=== PATIENT | male | born 1940 | race Caucasian/White ===

== ENCOUNTER 2024-04-06 18:40 | Emergency (ER) | payer OTHER ==
[~2024-04-06] VITALS: Ht 177.8 cm; Wt 91.2 kg
[2024-04-06] MEDS ORDERED: TRANEXAMIC ACID 1,000 MG/10 ML VIAL ONE ×2 (18:50→19:57)
[2024-04-06] MEDS: TRANEXAMIC ACID 1,000 MG/10 ML VIAL IR ONE (19:00)
[2024-04-06] MEDS: DILTIAZEM HCL 50 MG IV IV ONE (19:30)
[2024-04-06] MEDS: IV NS 0.9% 500 ML BAG IV ONE (19:30)
[2024-04-06 19:39] LABS: BASOPHILS # (AUTO) 0.1 K/uL (0.0-0.2); BASOPHILS % (AUTO) 1.1 % (0.0-2.0); EOSINOPHILS # (AUTO) 0.1 K/uL (0.0-0.7); EOSINOPHILS % (AUTO) 2.3 % (0.0-6.0); HEMATOCRIT 35 % (39-51); HEMOGLOBIN 11.3 g/dL (13.5-17.5); LYMPHOCYTES # (AUTO) 0.6 K/uL (0.8-4.8); LYMPHOCYTES % (AUTO) 10.1 % (20.0-44.0); MEAN CORPUSCULAR HEMOGLOBIN 31 PG (26.0-33.0); MEAN CORPUSCULAR HGB CONC 32 g/dl (31.0-36.0); MEAN CORPUSCULAR VOLUME 97 fL (80-96); MONOCYTES # (AUTO) 0.8 K/uL (0.1-1.30); MONOCYTES % (AUTO) 14.4 % (2.0-12.0); NEUTROPHILS # (AUTO) 4.3 K/uL (1.8-8.9); NEUTROPHILS % (AUTO) 72.1 % (43.0-81.0); PLATELET COUNT (AUTO) 132 K/uL (150-450); RED BLOOD CELL COUNT(AUTO) 3.61 MIL/uL (4.5-6.0); RED CELL DISTRIBUTION WIDTH 15.8 % (11.5-15.0); WHITE BLOOD COUNT (AUTO) 5.9 K/uL (4.3-11.0)
[2024-04-06 19:47] LABS: CALCIUM, SERUM 9.1 mg/dL (8.5-10.1); CARBON DIOXIDE 24 mmol/L (21-32); CHLORIDE 107 mmol/L (98-107); CREATININE 1.7 mg/dL (0.6-1.3); GLUCOSE 119 mg/dL (74-106); POTASSIUM 4.9 mmol/L (3.5-5.1); SODIUM SERUM 139 mmol/L (136-145); UREA NITROGEN, BLOOD 62 mg/dL (7-18)
[2024-04-06] MEDS ORDERED: DILTIAZEM HCL 25 MG IV ONE (19:49)
[2024-04-06 19:54] LABS: INR 1.39 (0.91-1.10); PARTIAL THROMBOPLASTIN TIME 42.3 SEC (24.3-34.3); PROTHROMBIN TIME 14.1 SECS (9.2-11.1)
[2024-04-06 21:18] VITALS: BP 108/80; TEMP 98.7; O2SAT 94
== END 2024-04-06 21:19 | disposition home or self-care (01) ==
LOC: ER 18:46
DX: I48.20 Chronic atrial fibrillation, unspecified (principal); R04.0 Epistaxis; I50.9 Heart failure, unspecified; E11.9 Type 2 diabetes mellitus without complications; G30.9 Alzheimer's disease, unspecified; F02.80 Dementia in other diseases classified elsewhere, unspecified severity, without behavioral disturbance, psychotic disturbance, mood disturbance, and anxiety
CPT/HCPCS: 99285; 96374; 71045; 30901; 85025; 80048; 36415; 84484; 85730; 83880; 93005; J3490; J7040

== ENCOUNTER 2024-04-23 23:34 | Emergency (ER) | payer OTHER ==
[~2024-04-23] VITALS: Ht 177.8 cm; Wt 91.2 kg
[2024-04-23 23:40] VITALS: TEMP 98.6
[2024-04-24] MEDS: IV NS 0.9% 500 ML IV ONE (02:37)
[2024-04-24 03:21] VITALS: BP 109/76; O2SAT 98
[2024-04-30] MEDS ORDERED: CEPH-570 PO (15:11)
== END 2024-04-24 03:21 ==
LOC: ER 23:35
DX: Z46.6 Encounter for fitting and adjustment of urinary device (principal); G30.9 Alzheimer's disease, unspecified; F02.80 Dementia in other diseases classified elsewhere, unspecified severity, without behavioral disturbance, psychotic disturbance, mood disturbance, and anxiety; I48.91 Unspecified atrial fibrillation; E11.9 Type 2 diabetes mellitus without complications
CPT/HCPCS: 99284; 51702; 96360; J7040

== ENCOUNTER 2024-04-28 14:42 | Inpatient (IN) | payer OTHER ==
[~2024-04-28] VITALS: Ht 180.3 cm; Wt 95.3 kg
[2024-04-28 15:41] LABS: BASOPHILS # (AUTO) 0.1 K/uL (0.0-0.2); BASOPHILS % (AUTO) 1.3 % (0.0-2.0); EOSINOPHILS # (AUTO) 0.1 K/uL (0.0-0.7); EOSINOPHILS % (AUTO) 1.7 % (0.0-6.0); HEMATOCRIT 24 % (39-51); HEMOGLOBIN 7.9 g/dL (13.5-17.5); LYMPHOCYTES # (AUTO) 0.5 K/uL (0.8-4.8); LYMPHOCYTES % (AUTO) 8.3 % (20.0-44.0); MEAN CORPUSCULAR HEMOGLOBIN 31 PG (26.0-33.0); MEAN CORPUSCULAR HGB CONC 33 g/dl (31.0-36.0); MEAN CORPUSCULAR VOLUME 96 fL (80-96); MONOCYTES # (AUTO) 0.8 K/uL (0.1-1.30); MONOCYTES % (AUTO) 12.9 % (2.0-12.0); NEUTROPHILS # (AUTO) 4.4 K/uL (1.8-8.9); NEUTROPHILS % (AUTO) 75.8 % (43.0-81.0); PLATELET COUNT (AUTO) 156 K/uL (150-450); RED BLOOD CELL COUNT(AUTO) 2.53 MIL/uL (4.5-6.0); RED CELL DISTRIBUTION WIDTH 16.4 % (11.5-15.0); WHITE BLOOD COUNT (AUTO) 5.8 K/uL (4.3-11.0)
[2024-04-28 15:45] LABS: CALCIUM, SERUM 8.7 mg/dL (8.5-10.1); CARBON DIOXIDE 25 mmol/L (21-32); CHLORIDE 102 mmol/L (98-107); CREATININE 1.9 mg/dL (0.6-1.3); GLUCOSE 169 mg/dL (74-106); POTASSIUM 4.2 mmol/L (3.5-5.1); SODIUM SERUM 134 mmol/L (136-145); UREA NITROGEN, BLOOD 46 mg/dL (7-18)
[2024-04-28 15:50] LABS: ALANINE AMINOTRANSFERASE 17 U/L (12-78); ALBUMIN 2.9 g/dL (3.4-5.0); ALKALINE PHOSPHATASE 117 U/L (46-116); ASPARTATE AMINOTRANSFERASE 20 U/L (15-37); BILIRUBIN,DIRECT 0.5 mg/dL (0.0-0.2); BILIRUBIN,TOTAL 0.9 mg/dL (0.2-1.0); TOTAL PROTEIN, SERUM 7.5 g/dL (6.4-8.2)
[2024-04-28 15:58] LABS: LACTIC ACID 2.4 mmol/L (0.4-2.0)
[2024-04-28 16:00] LABS: INR 1.22 (0.91-1.10); PARTIAL THROMBOPLASTIN TIME 28.3 SEC (24.3-34.3); PROTHROMBIN TIME 12.5 SECS (9.2-11.1)
[2024-04-28] MEDS ORDERED: MULT1TAB70 PO (16:29)
[2024-04-28] MEDS ORDERED: POVI3780 TP (16:29)
[2024-04-28] MEDS ORDERED: MORP15TA PO (16:29)
[2024-04-28] MEDS ORDERED: AMIO100T4 PO (16:29)
[2024-04-28] MEDS ORDERED: PETR113O TP (16:29)
[2024-04-28] MEDS ORDERED: MENT71OI2 TP (16:29)
[2024-04-28] MEDS ORDERED: FURO-145 PO ×2 (16:29)
[2024-04-28] MEDS ORDERED: ACET650S11 RC (16:29)
[2024-04-28] MEDS ORDERED: AMOX500T2 PO (16:29)
[2024-04-28] MEDS ORDERED: MIRT-90 PO (16:29)
[2024-04-28] MEDS ORDERED: TIOT4MIS2 IH (16:29)
[2024-04-28] MEDS ORDERED: ASCO100058 PO (16:29)
[2024-04-28] MEDS ORDERED: CLOT15CR27 TP (16:29)
[2024-04-28] MEDS ORDERED: SPIR25TA6 PO (16:29)
[2024-04-28] MEDS ORDERED: ONDA4TAB11 SL (16:29)
[2024-04-28] MEDS ORDERED: LORA-258 PO (16:29)
[2024-04-28] MEDS ORDERED: DICL100G26 TP (16:29)
[2024-04-28] MEDS ORDERED: METH1TAB69 PO (16:29)
[2024-04-28] MEDS ORDERED: OMEG100037 PO (16:29)
[2024-04-28] MEDS ORDERED: BENZ-38 PO (16:29)
[2024-04-28] MEDS ORDERED: ATOR20TA PO (16:29)
[2024-04-28] MEDS ORDERED: BISO5TAB20 PO (16:29)
[2024-04-28] MEDS ORDERED: MAGN400O6 PO (16:29)
[2024-04-28] MEDS ORDERED: FERR325T28 PO (16:29)
[2024-04-28] MEDS ORDERED: PANT40TA2 PO (16:29)
[2024-04-28] MEDS ORDERED: ATRO2DRO4 SL (16:29)
[2024-04-28] MEDS ORDERED: SENN1TAB77 PO (16:29)
[2024-04-28] MEDS ORDERED: PROC25SU29 RC (16:29)
[2024-04-28] MEDS ORDERED: MORP100S3 PO (16:29)
[2024-04-28] MEDS ORDERED: TAMS-12 PO (16:29)
[2024-04-28] MEDS ORDERED: HALO1TAB5 SL (16:29)
[2024-04-28] MEDS ORDERED: LACT1CAP25 PO (16:29)
[2024-04-28] MEDS ORDERED: ACET-2030 PO (16:29)
[2024-04-28] MEDS ORDERED: BISA10SU11 RC (16:29)
[2024-04-28 16:43] LABS: APPEARANCE,URINE Slightly Cloudy (CLEAR); BILIRUBIN,URINE Negative (NEGATIVE); BLOOD, URINE Large Ery/uL (NEGATIVE); COLOR,URINE YELLOW (YELLOW); KETONES,URINE Negative (NEGATIVE); LEUKOCYTE ESTERASE ,URINE Trace (NEGATIVE); NITRITE, URINE Positive (NEGATIVE); PH,URINE 5.5 (5.0-8.0); PROTEIN,URINE 100 mg/dl (NEGATIVE); UGLUCOSE Negative (NEGATIVE); UROBILINOGEN,URINE 0.2 EU/dL (0.2)
[2024-04-28 16:59] LABS: RBC,URINE 21-50 /HPF (0-2)
[2024-04-28 17:00] LABS: ADD URINE CULTURE YES; BACTERIA,URINE Few /HPF (None Seen); SQUAMOUS EPITHELIAL CELL,UR Few /HPF (None Seen)
[2024-04-28] MEDS: CEFTRIAXONE 1GM BAG (ER ONLY) 1 GM/50 ML PIGGYBACK IV ONE (17:30)
[2024-04-28] MEDS ORDERED: CEFTRIAXONE 1GM BAG (ER ONLY) 50 ML IV ONE (17:35)
[2024-04-28] MEDS: TRANEXAMIC ACID 1,000 MG in IV NS 0.9% 100 ML IV ONE (18:00)
[2024-04-28] MEDS ORDERED: Z GUARD REMEDY 4 OZ OINT TP PRN (18:00)
[2024-04-28] MEDS ORDERED: ONDANSETRON HCL/PF 4 MG/2 ML VIAL IVP PRN (18:00)
[2024-04-28] MEDS ORDERED: CEFTRIAXONE 1 G in IV D5W 50 ML IV SCH (18:00)
[2024-04-28] MEDS ORDERED: MORPHINE SULFATE IR 15 MG TABLET PO PRN (18:00)
[2024-04-28 20:20] VITALS: BP 90/69; TEMP 98.8; O2SAT 96
[2024-04-28] MEDS ORDERED: HALOPERIDOL 1 MG TABLET PO PRN (21:00)
[2024-04-28] MEDS: ATORVASTATIN 10 MG TABLET PO SCH (21:29)
[2024-04-28] MEDS: MIRTAZAPINE 15 MG TABLET PO SCH (21:29)
[2024-04-28] MEDS: IV NS 0.9% 1,000 ML IV PRN (22:13)
[2024-04-28 22:49] LABS: HEMOGLOBIN 7.5 g/dL (13.5-17.5)
[2024-04-29] VITALS (7 sets, daily range): BP systolic 90–105; BP diastolic 63–77; TEMP 98.1–100; O2SAT 94–100
[2024-04-29 07:06] LABS: BASOPHILS # (AUTO) 0.1 K/uL (0.0-0.2); BASOPHILS % (AUTO) 1.1 % (0.0-2.0); EOSINOPHILS # (AUTO) 0.1 K/uL (0.0-0.7); EOSINOPHILS % (AUTO) 2.6 % (0.0-6.0); HEMATOCRIT 22 % (39-51); HEMOGLOBIN 7.3 g/dL (13.5-17.5); LYMPHOCYTES # (AUTO) 0.5 K/uL (0.8-4.8); LYMPHOCYTES % (AUTO) 10.4 % (20.0-44.0); MEAN CORPUSCULAR HEMOGLOBIN 31 PG (26.0-33.0); MEAN CORPUSCULAR HGB CONC 33 g/dl (31.0-36.0); MEAN CORPUSCULAR VOLUME 95 fL (80-96); MONOCYTES # (AUTO) 0.9 K/uL (0.1-1.30); MONOCYTES % (AUTO) 16.7 % (2.0-12.0); NEUTROPHILS # (AUTO) 3.6 K/uL (1.8-8.9); NEUTROPHILS % (AUTO) 69.2 % (43.0-81.0); PLATELET COUNT (AUTO) 135 K/uL (150-450); RED BLOOD CELL COUNT(AUTO) 2.34 MIL/uL (4.5-6.0); RED CELL DISTRIBUTION WIDTH 16.9 % (11.5-15.0); WHITE BLOOD COUNT (AUTO) 5.2 K/uL (4.3-11.0)
[2024-04-29 07:33] LABS: CALCIUM, SERUM 8.1 mg/dL (8.5-10.1); CARBON DIOXIDE 22 mmol/L (21-32); CHLORIDE 105 mmol/L (98-107); CREATININE 1.6 mg/dL (0.6-1.3); GLUCOSE 98 mg/dL (74-106); MAGNESIUM 2.4 mg/dL (1.8-2.4); PHOSPHORUS 3.5 mg/dL (2.5-4.9); POTASSIUM 3.9 mmol/L (3.5-5.1); SODIUM SERUM 140 mmol/L (136-145); UREA NITROGEN, BLOOD 35 mg/dL (7-18)
[2024-04-29] MEDS: PANTOPRAZOLE 40 MG TABLET.DR PO SCH (08:26)
[2024-04-29] MEDS: TAMSULOSIN 0.4 MG CAP.SR.24H PO SCH (08:36)
[2024-04-29] MEDS: AMIODARONE HCL 200 MG TABLET PO SCH (08:37)
[2024-04-29] MEDS: SPIRONOLACTONE 25 MG TABLET PO SCH (08:38)
[2024-04-29] MEDS: CEFTRIAXONE 1 G in IV D5W 50 ML IV SCH (08:38)
[2024-04-29 11:30] LABS: HEMOGLOBIN 7.7 g/dL (13.5-17.5)
[2024-04-29] MEDS: ACETAMINOPHEN 325 MG TABLET PO PRN (15:07)
[2024-04-29] MEDS: LEVOTHYROXINE SODIUM 75 MCG TABLET PO SCH (15:07)
[2024-04-29] MEDS: LEVOTHYROXINE SODIUM 100 MCG TABLET PO SCH (16:48)
[2024-04-29 21:04] LABS: CREATININE, URINE 120.8 MG/DL (30.0-125.0); URINE TOTAL PROTEIN 64.1 mg/dL (0-11.9)
[2024-04-30] MEDS: LORAZEPAM 0.5 MG TABLET PO PRN (04:22)
[2024-04-30 04:46] VITALS: BP 109/78; TEMP 98.2; O2SAT 97
[2024-04-30 07:46] LABS: BASOPHILS % (AUTO) 0.8 % (0.0-2.0); EOSINOPHILS # (AUTO) 0.1 K/uL (0.0-0.7); HEMATOCRIT 23 % (39-51); HEMOGLOBIN 7.5 g/dL (13.5-17.5); LYMPHOCYTES # (AUTO) 0.7 K/uL (0.8-4.8); LYMPHOCYTES % (AUTO) 11.1 % (20.0-44.0); MEAN CORPUSCULAR HEMOGLOBIN 31 PG (26.0-33.0); MEAN CORPUSCULAR HGB CONC 33 g/dl (31.0-36.0); MEAN CORPUSCULAR VOLUME 94 fL (80-96); MONOCYTES % (AUTO) 16.5 % (2.0-12.0); NEUTROPHILS # (AUTO) 4.2 K/uL (1.8-8.9); NEUTROPHILS % (AUTO) 69.6 % (43.0-81.0); PLATELET COUNT (AUTO) 132 K/uL (150-450); RED BLOOD CELL COUNT(AUTO) 2.43 MIL/uL (4.5-6.0); RED CELL DISTRIBUTION WIDTH 16.6 % (11.5-15.0); WHITE BLOOD COUNT (AUTO) 6.1 K/uL (4.3-11.0)
[2024-04-30 07:59] LABS: ALANINE AMINOTRANSFERASE 15 U/L (12-78); ALBUMIN 2.5 g/dL (3.4-5.0); ALKALINE PHOSPHATASE 109 U/L (46-116); ASPARTATE AMINOTRANSFERASE 22 U/L (15-37); BILIRUBIN,TOTAL 0.9 mg/dL (0.2-1.0); CALCIUM, SERUM 7.9 mg/dL (8.5-10.1); CARBON DIOXIDE 22 mmol/L (21-32); CHLORIDE 105 mmol/L (98-107); CREATININE 1.6 mg/dL (0.6-1.3); GLUCOSE 122 mg/dL (74-106); MAGNESIUM 2.3 mg/dL (1.8-2.4); PHOSPHORUS 3.4 mg/dL (2.5-4.9); SODIUM SERUM 138 mmol/L (136-145); TOTAL PROTEIN, SERUM 6.8 g/dL (6.4-8.2); UREA NITROGEN, BLOOD 34 mg/dL (7-18)
[2024-04-30 08:27] LABS: CREATINE KINASE, TOTAL 159 U/L (39-308)
[2024-04-30 09:29] LABS: EOSINOPHILS % (MANUAL) 1 % (0-4); LYMPHOCYTES % (MANUAL) 14 % (16-48); MONOCYTES % (MANUAL) 14 % (0-11.0); NEUTROPHILS % (MANUAL) 71 (42-76); PLATELET ESTIMATE DECREASED
[2024-04-30] MEDS ORDERED: IV NS 0.9% 1,000 ML IV PRN (09:38)
[2024-04-30] MEDS ORDERED: CEPH-570 PO (15:11)
[2024-04-30 15:54] VITALS: BP 100/79; TEMP 98.2; O2SAT 94
[2024-05-02 06:09] LABS: PTH, INTACT 51 pg/mL (15-65)
[2024-05-02 10:10] LABS: *SPE A/G RATIO 0.8 (0.7-1.7); *SPE ALBUMIN 2.8 g/dL (2.9-4.4); *SPE ALPHA-1-GLOBULIN 0.3 g/dL (0.0-0.4); *SPE ALPHA-2-GLOBULIN 0.7 g/dL (0.4-1.0); *SPE BETA GLOBULIN 1.1 g/dL (0.7-1.3); *SPE GLOBULIN, TOTAL 3.5 g/dL (2.2-3.9); *SPE M-SPIKE Not Observed g/dL (Not Observed); *SPE PROTEIN TOTAL 6.3 g/dL (6.0-8.5); *SPEGAMMA GLOBULIN 1.4 g/dL (0.4-1.8)
== END 2024-04-30 17:45 | DRG 698 ==
LOC: ER 15:14 → TELE 18:50 → MED 04-30 10:14
PROVIDERS: ADMIT Nurse Practitioner Acute Care; ATTEND Nurse Practitioner Acute Care
PROC: 30233N1 Transfusion of Nonautologous Red Blood Cells into Peripheral Vein, Percutaneous Approach (ICD-10-PCS; principal; 2024-04-28)
DX: T83.83XA Hemorrhage due to genitourinary prosthetic devices, implants and grafts, initial encounter (principal); I50.23 Acute on chronic systolic (congestive) heart failure; D62 Acute posthemorrhagic anemia; E87.20 Acidosis, unspecified; N17.9 Acute kidney failure, unspecified; N39.0 Urinary tract infection, site not specified; S37.30XA Unspecified injury of urethra, initial encounter; Y84.6 Urinary catheterization as the cause of abnormal reaction of the patient, or of later complication, without mention of misadventure at the time of the procedure; E11.65 Type 2 diabetes mellitus with hyperglycemia; E78.5 Hyperlipidemia, unspecified; E88.09 Other disorders of plasma-protein metabolism, not elsewhere classified; Z95.1 Presence of aortocoronary bypass graft; Z79.899 Other long term (current) drug therapy; N36.8 Other specified disorders of urethra; Z78.1 Physical restraint status; Z66 Do not resuscitate; Z95.2 Presence of prosthetic heart valve; Z95.810 Presence of automatic (implantable) cardiac defibrillator; R33.8 Other retention of urine; Z20.822 Contact with and (suspected) exposure to COVID-19; N40.0 Benign prostatic hyperplasia without lower urinary tract symptoms; G30.9 Alzheimer's disease, unspecified; F02.80 Dementia in other diseases classified elsewhere, unspecified severity, without behavioral disturbance, psychotic disturbance, mood disturbance, and anxiety; I95.9 Hypotension, unspecified; M89.8X9 Other specified disorders of bone, unspecified site; I48.91 Unspecified atrial fibrillation; I25.10 Atherosclerotic heart disease of native coronary artery without angina pectoris; N40.1 Benign prostatic hyperplasia with lower urinary tract symptoms; N18.9 Chronic kidney disease, unspecified; E11.22 Type 2 diabetes mellitus with diabetic chronic kidney disease; Y92.89 Other specified places as the place of occurrence of the external cause
CPT/HCPCS: 36415; 71045-TC; 76770-TC; 80048-TC; 80053-TC; 80076-TC; 81001; 82550-TC; 82570-TC; 83605-TC; 83735-TC; 83880; 83970; 84100-TC; 84155; 84165; 84300-TC; 84439-TC; 84443-TC; 84484-TC; 85025-TC; 85027-TC; 85730-TC; 86850-TC; 87040-TC; 87081-TC; 87086-TC; A4223; G0378; J0696; J7030; J7040; J7050; J7060; P9016